=== PATIENT | female | born 1995 | race Caucasian/White ===

== ENCOUNTER 2019-02-20 23:11 | Observation (INO) | payer MEDICAID ==
[~2019-02-20] VITALS: Ht 162.6 cm; Wt 75.7 kg
[~2019-02-20 23:11] MED LIST: FERR325T23 PO; IBUP-779 PO; MULT-1146 PO
[2019-02-21] MEDS ORDERED: NITR100C PO (00:02)
[2019-02-21] MEDS ORDERED: FOLI0.4T2 MT (00:02)
[2019-02-21] MEDS ORDERED: ASPI-1497 PO (00:02)
[2019-02-21] MEDS ORDERED: METH10TA7 PO (00:02)
[2019-02-21] MEDS ORDERED: PREN1TAB78 PO (00:02)
[2019-02-21 01:24] LABS: CLARITY URINE CLEAR (CLEAR); COLOR URINE YELLOW (YELLOW); KETONES URINE 1+ (NEGATIVE); LEUKOCYTE ESTERASE URINE 1+ (NEGATIVE); NITRITE URINE NEGATIVE (NEGATIVE); OCCULT BLOOD URINE NEGATIVE (NEGATIVE); PH URINE 5.5 (4.5-8.0); PROTEIN URINE TRACE (NEGATIVE); SPECIFIC GRAVITY URINE 1.023 (1.005-1.030)
== END 2019-02-21 02:30 | disposition home or self-care (01) ==
LOC: 8 EST LDRP 23:11
PROVIDERS: ADMIT Obstetrics & Gynecology; ATTEND Obstetrics & Gynecology
DX: O26.899 Other specified pregnancy related conditions, unspecified trimester (principal); M54.9 Dorsalgia, unspecified; O62.9 Abnormality of forces of labor, unspecified; Z3A.00 Weeks of gestation of pregnancy not specified
CPT/HCPCS: 81003; 82731; 99281; G0378

== ENCOUNTER 2019-04-06 17:41 | Inpatient (IN) | payer MEDICAID ==
[~2019-04-06] VITALS: Ht 160 cm; Wt 80.7 kg
[~2019-04-06 17:41] MED LIST changes: +ASPI-1497 PO; +FOLI0.4T2 MT; -IBUP-779 PO; +METH10TA7 PO; -MULT-1146 PO; +NITR100C PO; +PREN1TAB78 PO
[2019-04-06] MEDS ORDERED: DEXT 5%/LR + PITOCIN 20UNITS/L 1,000 ML IV SCH (18:17)
[2019-04-06 18:34] LABS: CLARITY URINE CLEAR (CLEAR); COLOR URINE YELLOW (YELLOW); KETONES URINE NEGATIVE (NEGATIVE); LEUKOCYTE ESTERASE URINE 3+ (NEGATIVE); NITRITE URINE NEGATIVE (NEGATIVE); OCCULT BLOOD URINE NEGATIVE (NEGATIVE); PH URINE 6.5 (4.5-8.0); PROTEIN URINE TRACE (NEGATIVE); SPECIFIC GRAVITY URINE 1.012 (1.005-1.030)
[2019-04-06] MEDS ORDERED: HYDRALAZINE 20MG/ML VIAL IV PRN (18:45)
[2019-04-06] MEDS ORDERED: LABETALOL HCL 5MG/ML VIAL 20ML IV PRN ×3 (18:45)
[2019-04-06] MEDS: LACTATED RINGERS 1,000 ML IV SCH (19:05)
[2019-04-06 19:27] LABS: BASOPHILS % 0.4 % (0.0-2.0); EOSINOPHILS % 1.7 % (0.0-5.0); HEMATOCRIT. 37.8 % (36.0-48.0); HEMOGLOBIN. 12.7 g/dL (12.0-16.0); LYMPHOCYTES % 15.8 % (20.0-50.0); MEAN CORPUSCULAR HEMOGLOBIN 26.4 pg (28.0-32.0); MEAN CORPUSCULAR VOLUME 78.7 fL (81.0-99.0); MONOCYTES % 7.7 % (2.0-8.0); NEUTROPHILS % 74.4 % (40.0-76.0); PLATELET 149 x1000/uL (130-400); RED CELL DISTRIBUTION WIDTH 12.8 % (11.6-14.6)
[2019-04-06 19:35] LABS: CHLORIDE 108 mEq/L (98-107)
[2019-04-06 19:39] LABS: D-DIMER 1.23 mg/L FEU (<0.50); INR 0.9; PARTIAL THROMBOPLASTIN TIME 26.4 sec (23.4-31.0); PROTHROMBIN TIME 9.7 sec (9.6-11.0)
[2019-04-06] MEDS ORDERED: FENTANYL CITRATE/PF 50MCG/ML 2ML VIAL ONE (19:59)
[2019-04-06] MEDS ORDERED: PHENYLEPHRINE HCL 10 MG/ML 1ML (IV VIAL) IV ONE (20:00)
[2019-04-06] MEDS ORDERED: OXYTOCIN 10 UNITS/ML 1ML ONE (20:00)
[2019-04-06] MEDS ORDERED: CEFAZOLIN SODIUM 1000MG/VIAL ONE (20:00)
[2019-04-06] MEDS ORDERED: EPHEDRINE SULFATE 50MG/ML VIAL ONE (20:00)
[2019-04-06] MEDS ORDERED: GLYCOPYRROLATE 0.2 MG/ML 2ML VIAL ONE (20:00)
[2019-04-06] MEDS ORDERED: MORPHINE SULFATE/PF 1MG/ML 10ML AMP ONE (20:00)
[2019-04-06] MEDS ORDERED: ONDANSETRON HCL 4MG/2ML INJ ONE (20:00)
[2019-04-06 20:14] LABS: HEPATITIS B SURFACE ANTIGEN NEGATIVE
[2019-04-06] MEDS ORDERED: CITRIC ACID/SODIUM CITRATE SOLN 30ML UDC PO NR (20:15)
[2019-04-06] MEDS ORDERED: BETAMETHASONE ACET/BETAMET 30 MG/5 ML VIAL IM NR (20:30)
[2019-04-06] MEDS: METHIMAZOLE 5MG TABLET PO SCH (20:39)
[2019-04-06] MEDS: MAGNESIUM 20 G PREMIX (L & D) 500 ML IV SCH (21:01)
[2019-04-07] MEDS: MAGNESIUM 20 G PREMIX (L & D) 500 ML IV SCH ×3 (04:07→23:33)
[2019-04-07 06:31] LABS: *AMPHETAMINES SCREEN URINE NEGATIVE (NEGATIVE); *BARBITURATES SCREEN URINE NEGATIVE (NEGATIVE); *BENZODIAZEPINES SCREEN URINE NEGATIVE (NEGATIVE); *COCAINE SCREEN URINE NEGATIVE (NEGATIVE); CANNABINOID URINE SCREEN NEGATIVE (NEGATIVE); METHADONE URINE SCREEN NEGATIVE (NEGATIVE); OPIATES URINE SCREEN NEGATIVE (NEGATIVE); PHENCYCLIDINE URINE SCREEN NEGATIVE (NEGATIVE)
[2019-04-07] MEDS ORDERED: CEFAZOLIN SODIUM 1000MG/VIAL ONE (10:29)
[2019-04-07 10:32] LABS: T4 FREE 1.54 ng/dL (0.76-1.46)
[2019-04-07] MEDS: METHIMAZOLE 5MG TABLET PO SCH (20:15)
[2019-04-07] MEDS: LACTATED RINGERS 1,000 ML IV SCH (20:22)
[2019-04-07] MEDS ORDERED: LACTATED RINGERS 1,000 ML IV SCH (22:30)
[2019-04-07] MEDS ORDERED: SODIUM CHLORIDE 0.9% INJ 3ML FLUSH IVF SCH (23:00)
[2019-04-08] MEDS ORDERED: CITRIC ACID/SODIUM CITRATE SOLN 30ML UDC PO SCH (02:00)
[2019-04-08] MEDS ORDERED: MORPHINE SULFATE/PF 1MG/ML 10ML AMP ONE (02:07)
[2019-04-08] MEDS ORDERED: FENTANYL CITRATE/PF 50MCG/ML 2ML VIAL ONE (02:07)
[2019-04-08] MEDS ORDERED: PHENYLEPHRINE HCL 10 MG/ML 1ML (IV VIAL) IV ONE (02:07)
[2019-04-08] MEDS ORDERED: EPHEDRINE SULFATE 50MG/ML VIAL ONE (02:07)
[2019-04-08] MEDS ORDERED: CEFAZOLIN SODIUM 1000MG/VIAL ONE (02:07)
[2019-04-08] MEDS ORDERED: GLYCOPYRROLATE 0.2 MG/ML 2ML VIAL ONE (02:07)
[2019-04-08] MEDS ORDERED: OXYTOCIN 10 UNITS/ML 1ML ONE ×2 (02:07→02:59)
[2019-04-08] MEDS ORDERED: ONDANSETRON HCL 4MG/2ML INJ ONE (02:12)
[2019-04-08] MEDS ORDERED: DIPHENHYDRAMINE 50MG/ML VIAL ONE (02:51)
[2019-04-08] MEDS ORDERED: ESMOLOL HCL 10MG/ML 10ML VIAL IV ONE (02:52)
[2019-04-08] MEDS ORDERED: KETOROLAC 60MG/2ML VIAL IM ONE (03:02)
[2019-04-08] MEDS ORDERED: DIPHENHYDRAMINE 50MG/ML VIAL IV PRN (03:15)
[2019-04-08] MEDS ORDERED: NALOXONE HCL 0.4 MG/ML 1ML VIAL IV PRN (03:15)
[2019-04-08] MEDS: BUTORPHANOL TARTRATE 2 MG/ML VIAL IV PRN ×3 (03:58→22:04)
[2019-04-08] MEDS ORDERED: MAGNESIUM 20 G PREMIX (L & D) 500 ML IV SCH ×2 (04:09→07:30)
[2019-04-08] MEDS ORDERED: RHO(D) IMMUNE GLOBULIN 300 MCG/SYR IM PRN (04:15)
[2019-04-08] MEDS ORDERED: IBUPROFEN 400MG TABLET PO PRN (04:15)
[2019-04-08] MEDS ORDERED: BISACODYL 10MG SUPP PR PRN (04:15)
[2019-04-08] MEDS ORDERED: MISOPROSTOL 200MCG TABLET RC ONE (04:30)
[2019-04-08] MEDS ORDERED: DEXT 5%/LR + PITOCIN 20UNITS/L 1,000 ML IV SCH (04:30)
[2019-04-08] MEDS ORDERED: HYDROMORPHONE HCL/PF 2MG/ML CPJ IV PRN (04:30)
[2019-04-08] MEDS ORDERED: METHIMAZOLE 5MG TABLET PO SCH (05:00)
[2019-04-08] MEDS ORDERED: KETOROLAC 30MG/ML VIAL IV SCH (09:00)
[2019-04-08 09:30] VITALS: BP 131/69
[2019-04-08] MEDS: KETOROLAC 30MG/ML VIAL IV SCH ×2 (11:19→19:55)
[2019-04-08 11:30] VITALS: BP 116/65
[2019-04-08 12:00] VITALS: BP 116/65
[2019-04-08 16:00] VITALS: BP 108/70
[2019-04-08 20:00] VITALS: BP 124/76
[2019-04-08] MEDS: METHIMAZOLE 5MG TABLET PO SCH (21:11)
[2019-04-09] VITALS: BP 120/72
[2019-04-09 04:00] VITALS: BP 120/75
[2019-04-09] MEDS: KETOROLAC 30MG/ML VIAL IV SCH (04:05)
[2019-04-09 04:14] LABS: EOSINOPHILS % 0.1 % (0.0-5.0); HEMATOCRIT. 33.7 % (36.0-48.0); LYMPHOCYTES % 11.1 % (20.0-50.0); MEAN CORPUSCULAR HEMOGLOBIN 26.1 pg (28.0-32.0); MEAN CORPUSCULAR VOLUME 79.6 fL (81.0-99.0); MEAN PLATELET VOLUME 9.7 fl (7.4-10.4); MONOCYTES % 7.5 % (2.0-8.0); NEUTROPHILS % 81.3 % (40.0-76.0); PLATELET 189 x1000/uL (130-400); RED BLOOD CELL COUNT 4.23 mill/uL (4.2-5.4); RED CELL DISTRIBUTION WIDTH 12.8 % (11.6-14.6)
[2019-04-09 07:30] VITALS: BP 117/69
[2019-04-09] MEDS ORDERED: METHIMAZOLE 5MG TABLET PO SCH (09:00)
[2019-04-09] MEDS: IBUPROFEN 800MG TABLET PO PRN ×2 (13:54→21:18)
[2019-04-09 15:45] VITALS: BP 110/61
[2019-04-09 19:30] VITALS: BP 136/83
[2019-04-09] MEDS ORDERED: MEASLES,MUMPS&RUBELLA VACCINE 1 VIAL SUBCUT ONE (20:00)
[2019-04-10 04:00] VITALS: BP 123/77
[2019-04-10 07:29] VITALS: BP 128/78
[2019-04-10] MEDS: METHIMAZOLE 5MG TABLET PO SCH (08:57)
[2019-04-10] MEDS: IBUPROFEN 800MG TABLET PO PRN ×2 (13:51→21:11)
[2019-04-10 15:09] VITALS: BP 121/84
[2019-04-10 20:30] VITALS: BP 125/80
[2019-04-11 05:49] VITALS: BP 120/78
[2019-04-11 07:42] VITALS: BP 120/81
[2019-04-11] MEDS: METHIMAZOLE 5MG TABLET PO SCH (08:51)
[2019-04-11] MEDS: IBUPROFEN 800MG TABLET PO PRN (08:51)
== END 2019-04-11 12:20 | disposition home or self-care (01) | DRG 540 ==
LOC: 8 EST LDRP 17:41 → OBSVTOIN 17:41 → 8EST 04-08 06:08
PROVIDERS: ADMIT Obstetrics & Gynecology; ATTEND Obstetrics & Gynecology
PROC: 10D00Z1 Extraction of Products of Conception, Low, Open Approach (ICD-10-PCS; principal; 2019-04-08)
DX: O30.003 Twin pregnancy, unspecified number of placenta and unspecified number of amniotic sacs, third trimester (principal); O60.14X1 Preterm labor third trimester with preterm delivery third trimester, fetus 1; O60.14X2 Preterm labor third trimester with preterm delivery third trimester, fetus 2; D62 Acute posthemorrhagic anemia; O10.92 Unspecified pre-existing hypertension complicating childbirth; O16.4 Unspecified maternal hypertension, complicating childbirth; Z37.2 Twins, both liveborn; O34.211 Maternal care for low transverse scar from previous cesarean delivery; E05.90 Thyrotoxicosis, unspecified without thyrotoxic crisis or storm; O99.284 Endocrine, nutritional and metabolic diseases complicating childbirth; O11.4 Pre-existing hypertension with pre-eclampsia, complicating childbirth; O32.1XX1 Maternal care for breech presentation, fetus 1; O32.2XX2 Maternal care for transverse and oblique lie, fetus 2; O90.81 Anemia of the puerperium; Z3A.33 33 weeks gestation of pregnancy; Z82.49 Family history of ischemic heart disease and other diseases of the circulatory system; Z83.3 Family history of diabetes mellitus; Z82.3 Family history of stroke; Z79.899 Other long term (current) drug therapy; Z79.82 Long term (current) use of aspirin
CPT/HCPCS: 36415; 80053; 80305; 81003; 83735; 84439; 84443; 84481; 84550; 85025; 85379; 85384; 86592; 86703; 86762; 86850; 86900; 86920; 87340; 88307; 90707; 99281; G0378; J0595; J0690; J0702; J1170; J1200; J1885; J2274; J2370; J2405; J2590; J3010; J3475; J3490; J7120

== ENCOUNTER 2019-04-14 10:26 | Emergency (ER) | payer MEDICAID ==
[~2019-04-14] VITALS: Ht 162.6 cm; Wt 75.0 kg
[~2019-04-14 10:26] MED LIST changes: -ASPI-1497 PO; -FOLI0.4T2 MT; -NITR100C PO; -PREN1TAB78 PO
[2019-04-14 11:26] VITALS: BP 135/77
== END 2019-04-14 13:40 | disposition home or self-care (01) ==
LOC: ER 10:26
DX: B34.9 Viral infection, unspecified (principal); E05.90 Thyrotoxicosis, unspecified without thyrotoxic crisis or storm; Z79.82 Long term (current) use of aspirin
CPT/HCPCS: 99282